=== PATIENT | female | born 1960 | race Caucasian/White ===

== ENCOUNTER 2020-10-28 08:00 | Outpatient (CLI) | payer OTHER, SELFPAY ==
[~2020-10-28] VITALS: Ht 160 cm; Wt 49.9 kg
== END 2020-10-28 23:59 | disposition home or self-care (01) ==
LOC: MLB 08:00 → EDSTATUS 11-05 15:13
PROVIDERS: ATTEND Internal Medicine Gastroenterology
DX: Z01.812 Encounter for preprocedural laboratory examination (principal); R10.13 Epigastric pain; R63.4 Abnormal weight loss; K62.89 Other specified diseases of anus and rectum; Z20.822 Contact with and (suspected) exposure to COVID-19
CPT/HCPCS: U0003

== ENCOUNTER 2020-12-10 05:58 | Day surgery (SDC) | payer OTHER, SELFPAY ==
[~2020-12-10] VITALS: Ht 160 cm; Wt 49.9 kg
[2020-12-10] MEDS ORDERED: MIDAZOLAM 5 MG/5 ML VIAL ONE (07:40)
[2020-12-10] MEDS ORDERED: LIDOCAINE 2% 100 MG/5 ML UJET TP ONE (07:40)
[2020-12-10] MEDS ORDERED: fentaNYL citrate 0.05 MG/ML VIAL ONE (07:40)
[2020-12-10] MEDS ORDERED: fentaNYL citrate 0.05 MG/ML VIAL IVP ONE (08:10)
[2020-12-10] MEDS ORDERED: MIDAZOLAM 2 MG/2 ML VIAL IVP ONE (08:10)
== END 2020-12-10 08:50 | disposition home or self-care (01) ==
LOC: MDS 05:58 → MMU 05:59 → MDS 08:50
PROVIDERS: ATTEND Internal Medicine Gastroenterology
DX: R63.4 Abnormal weight loss (principal)
CPT/HCPCS: 36415; 43239; 45330; 86677; J2250; J3010; U0003